=== PATIENT | female | born 1985 | race Caucasian/White ===

== ENCOUNTER → 2025-02-14 13:33 | Outpatient (BNVA) | payer BC, MEDICAID, SELFPAY | PROVIDERS: PCP Nurse Practitioner; Visit Provider Nurse Practitioner | DX: Z98.890 Other specified postprocedural states (principal) | CPT/HCPCS: 84439; 84443; 84481 ==

== ENCOUNTER → 2025-06-13 11:13 | Outpatient (BNVA) | payer BC, SELFPAY | PROVIDERS: PCP Nurse Practitioner; Visit Provider Nurse Practitioner | DX: M25.40 Effusion, unspecified joint (principal) | CPT/HCPCS: 85025; 85651; 86038; 86140; 86431 ==